=== PATIENT | female | born 1995 ===

== ENCOUNTER 2018-06-01 21:29 | Inpatient (IN) | payer MEDICAID ==
[2018-06-01 22:13] VITALS: BMI 32.8
[2018-06-01] MEDS ORDERED: Lactated Ringer's 1,000 ML IV ONE (22:13)
[2018-06-01] MEDS ORDERED: Lactated Ringer's 1,000 ML IV SCH (22:15)
[2018-06-01] MEDS ORDERED: Oxytocin 30 UNIT 30 UNITS/500 ML BAG IV ONE (22:22)
[2018-06-01] MEDS ORDERED: OXYTOCIN/0.9 % NS 20 UNIT/1,000 ML BAG IV SCH (22:30)
[2018-06-01 22:32] LABS: BASO # 0.1 K/uL (0.0-0.2); BASO % 0.8 % (0.0-2.0); EOS # 0.1 K/uL (0.0-0.7); EOS % 1.1 % (0.0-4.0); HEMOGLOBIN 12.3 g/dL (12.0-16.0); LYMPH # 2.4 K/uL (1.0-4.3); LYMPH % 25.3 % (20.0-40.0); MEAN CELL VOLUME 82.2 fl (81.0-99.0); MEAN CORPUSCULAR HEMOGLOBIN 26.4 pg (27.0-31.0); MEAN CORPUSCULAR HGB CONC 32.2 g/dL (33.0-37.0); MEAN PLATELET VOLUME 8.5 fl (7.2-11.7); MONO # 0.7 K/uL (0.0-0.8); MONO % 7.8 % (0.0-10.0); NEUT # 6.1 K/uL (1.8-7.0); NRBC % 0.1 % (0.0-0.0); RBC 4.64 Mil/uL (3.80-5.20); RED CELL DISTRIBUTION WIDTH 14.4 % (11.5-14.5); WHITE BLOOD COUNT 9.4 K/uL (4.8-10.8)
[2018-06-02 07:14] VITALS: O2SAT 99
--- NOTE | 2018-06-02 19:10 | OBPN ---
Datetime: 06/02/2018 13:44 IP Progress Impression: Normal progression of labor; Reassuring heart rate IP Informed Consent Obtain: Vaginal Delivery IP Progress Plan: Continue present management; Induction; Cervical Ripening FHR - Baseline A Provider: 155 IP Progress Note Comment: Subjective: 22-year-old at 38.4, lying in bed comfortably with no complaints. Objective: Blood pressure: 126/72; HR: 89 FHT:FHR 155 bpm, accelerations present, no decelerations, moderate variability; Cat I CTX: none SVE: 08/30/3 at 10:45am Meds: Cervadil removed at 10:45am, Cytotect 50 mcg Q4 started at 12:15pm Assessment: Intrauterine at 38.4 weeks admitted for induction of labor currently in lat ent phase of labor. Plan: -Continue current management -FHT reassuring, Category I: Baseline ?FHR 155 bpm, accelerations present, no decelerations, moder ate variability -Observe labor progression -Continue Cytotec 50 mcg Q4H -Anticipate vaginal delivery/consider caesarean if necessary Case seen and discussed with Dr Hogan ---Patricia Randolph MD PGY1 [facility] OB Hospitalist note: On ronds I saw this patinet. She was examined after Cervidl removed...Discuss ion with patient about medical condition, IOL, medicatoins, risks/complications, labor, delivey and p ostpartum care...she agreed to starting Cytotec PO q4h. Her questoins answered. MAHNDO Vital Signs Provider: Reviewed NICHD Accel Fetus A IP Provider: [id number] FHR Category Provider Fetus A: Category I NICHD Variability Prov Fetus A: Moderate 6-25bpm Dilatation, Provider: 1 Effacement, Provider: 20 Station, Provider: -2 NICHD Decel Fetus A IP Provider: None
[2018-06-02] MEDS ORDERED: Fentanyl/Bupivacaine HCl 250 ML EPI ONE (20:19)
[2018-06-03] MEDS ORDERED: Oxytocin 30 UNIT 30 UNITS/500 ML BAG IV ONE (07:24)
--- NOTE | 2018-06-03 07:42 | OBPN ---
Datetime: 06/03/2018 07:30 IP Progress Impression Other: Latent phase of labor IP Progress Impression: Normal progression of labor; Reassuring heart rate IP Informed Consent Obtain: Vaginal Delivery IP Progress Plan: Augmentation; Anticipate Vaginal Delivery Pool Provider: Negative Membranes, Provider: Intact Contraction Comments Provider: none FHR - Baseline A Provider: 135 Presentation-Admit: Vertex IP Progress Note Comment: OB Hospitalist on-call. Pt had CTX pain last night. CTX q1-2m acc to shiva se and one dose was held/then given later at 4am ... +FM A: IUP at 38w / Hx demise / latent phase of labor PLAN: Discussoin with pt...will start Pitocin NICHD Accel Fetus A IP Provider: [id number] FHR Category Provider Fetus A: Category I NICHD Variability Prov Fetus A: Moderate 6-25bpm Dilatation, Provider: 3 Effacement, Provider: long Station, Provider: high NICHD Decel Fetus A IP Provider: None Datetime: 06/03/2018 05:37 Vital Signs Provider: Reviewed; Within Normal Limits
[2018-06-03] MEDS ORDERED: Phenylephrine 10 mg/ml Inj ONE (14:55)
--- NOTE | 2018-06-03 17:24 | OBDS ---
DELIVERY PERSONNEL Delivery Doctor: Cheko Olson MD Child Development Consultant: Shelly Conde RN MATERNAL INFORMATION Maternal Complications: None (Annotations: Data stored by [facility] on behalf of user) LABOR SUMMARY EDC: 06/12/2018 00:00 No. Babies in Womb: 1 Attempted: No Labor Anesthesia: Epidural LABOR INFORMATION Reason for Induction: Intrauterine Growth Retardation Cervical Ripening Agents: Cytotec @ Other Ripening Agents: cytotec 50 mcg po Oxytocin: N/A Group B Beta Strep: Negative Steroids Given: None Reason Steroids Not Administered: Not Applicable MEMBRANES Membranes Rupture Method: Artificial Amniotic Fluid Color: Clear Amniotic Fluid Amount: Small Amniotic Fluid Odor: Normal STAGES OF LABOR Stage 3 hrs: 0 Stage 3 min: 4 VAGINAL DELIVERY Episiotomy: None Laceration Extension: N/A Laceration Type: None Initial Vag Sponge Count: 5 Final Vag Sponge Count: 5 Initial Vag Sharps Count: 1 Final Vag Sharps Count: 1 Sponge Count Correct: Yes; Vaginal Sweep Performed Sharps Count Correct: Yes BABY A INFORMATION Infant Delivery Date/Time: 06/03/2018 15:36 Method of Delivery: Vaginal Born in Route : No : N/A Forceps: N/A Vacuum Extraction: N/A Shoulder Dystocia : No SHOULDER DYSTOCIA BABY A Delivery Date/Time: 06/03/2018 15:36 PRESENTATION/POSITION BABY A Presentation: Cephalic Cephalic Presentation: Vertex Breech Presentation: N/A PLACENTA INFORMATION BABY A Placenta Delivery Time : 06/03/2018 15:40 Placenta Method of Delivery: Spontaneous Placenta Status: Delivered SCORES BABY A Heart Rate 1 min: >100 bpm Resp Effort 1 min: Good Cry Reflex Irritability 1 min: Cough or Sneeze or Pulls Away Muscle Tone 1 min: Active Motion Color 1 min: Body [place], Extremities Blue Resuscitation Effort 1 min: Tactile Stimulation SCORE 1 MIN: 9 Heart Rate 5 min: >100 bpm Resp Effort 5 min: Good Cry Reflex Irritability 5 min: Cough or Sneeze or Pulls Away Muscle Tone 5 min: Active Motion Color 5 min: Body [place], Extremities Blue Resuscitation Effort 5 min: N/A SCORE 5 MIN: 9 INFORMATION BABY A Gestational Age at Delivery: 38.5 Gestational Status: Term Infant Outcome : Liveborn Infant Condition : Stable Sex: Female IDENTIFICATION/MEDS BABY A ID Band Number: [id number] WEIGHT/LENGTH BABY A Birthweight (gms): 2420 Infant Weight (lb): 5 Infant Weight (oz): 5 CORD INFORMATION BABY A No. Cord Vessels: 3 Nuchal Cord : Around Neck x1, Loose Cord Blood Taken: N/A Suction: Mouth; Nose
[2018-06-03] MEDS ORDERED: Benzocaine/Menthol SPRAY TOP PRN (17:26)
[2018-06-04] MEDS ORDERED: OXYTOCIN/0.9 % NS 20 UNIT/1,000 ML BAG IV SCH (05:48)
[2018-06-04] MEDS ORDERED: Benzocaine/Menthol SPRAY TOP PRN (05:48)
[2018-06-04 19:17] LABS: MEAN CORPUSCULAR HEMOGLOBIN 26.8 pg (27.0-31.0); MEAN CORPUSCULAR HGB CONC 32.3 g/dL (33.0-37.0); RBC 4.1 Mil/uL (3.80-5.20); RED CELL DISTRIBUTION WIDTH 14.6 % (11.5-14.5); WHITE BLOOD COUNT 9.1 K/uL (4.8-10.8)
--- NOTE | 2018-06-05 11:17 | OBPPN ---
Datetime: 06/05/2018 05:22 PP Pain Prov: Within normal limits PP Nausea Prov: Denies PP Flatus Prov: Yes PP BM Prov: No PP Breasts Prov: Not Done PP Heart Prov: Normal PP Lungs Prov: Normal PP Abdomen/Uterus Prov: Normal PP Lochia Prov: Normal PP Vulva/Perineum Prov: Normal PP CVA Tenderness Prov: Not Done PP Extremities Prov: Normal PP C/S Incision Prov: Not Applicable PP Progress Prov: Normal PP Impression Prov: Normal progression PP Plan Prov: Continue present management; Discharge PP Progress Note Prov: S: Patient seen this morning at bedside, she is now s/p on 06/03, today is PPD 2. Pt reports no complaints today. Reports minimal abdominal pain but states is bet ter with pain medication. She is tolerating PO intake w/o N/V, ambulating to bathroom without any dif ficulties, lochia is less than menses in volume, Breast feeding w/o difficulty and supplementing with formula. Patient reports flatus but no BM as of yet. O: VS WNL PE: Patient is resting comfortably in her hospital bed. In no acute distress. HEENT: Mucous membrane moist. RESP: Clear air entry bilaterally. CV: RRR, no murmurs, gallops or rubs. ABD: soft, non-tender, uterus firm below umbilicus LE: No edema, Mildred's negative. A/P: 22 y/o now s/p on 06/03/18, today is PPD 2- normal post- progression. Staci ent is stable to be D/C home. - Encourage ambulation - Encourage to continue - PNV 1 tab PO daily - Ibuprofen 600mg 1 tab Q6h prn for mild-mod pain - D/C home today, 06/05/18 Chani Nobles MD PGY1 OB Attneding note Pt seen on rounds...agree with note MARILEE CAT PP Procedures: None Vital Signs Provider PP: Reviewed; Within Normal Limits
--- NOTE | 2018-06-05 11:20 | OBDCSUM ---
Datetime: 06/05/2018 05:23 Discharged to, Provider: Home Follow up at, Provider: [facility] Disch Instr Activity: Normal activity; May Shower Disch Instr Diet: Regular Discharge Instructions, Provider: Routine instructions given Discharge Diagnosis, Provider: Term Delivered Discharge Time: 06/05/2018 10:00 Follow up in weeks, Provider: 6 weeks Disch Referrals: None Contraception discussed, Prov: Yes Disch Activity Restrictions: No exercising; No lifting; No sexual activity; Nothing in vagina - Inte rcourse, tampons, douche Discharge Comment, Provider: EGA: 38.3 weeks Diagnosis: 22 y/o , s/p on 06/03/18 @ 15:36. She delivered a baby female, Wt 2420g, AP GAR 04/19 Summary: Patient is PPD2 with normal progression. No complications during post- period. Loch ia less than menses. Pt was able to pass gas but has not had BM, She is tolerating regular diet, Fund us firm below umbilicus, able to ambulate w/o any difficulties, voiding well, denies fever, chills, H A, SOB, N/V, calf pain. CBC post-: 11.0/34.0 Discharge Instructions: 1. Continue and increase 2. PNV 1 tab PO daily 3. Ibuprofen 600mg 1 tab PO Q6h prn for mild-mod pain 4. Pt is not interested in using contraception at this time. 5. Instructions given to patient: If excessive bleeding, return of pain or increasing pain and/or fever without relief from medication, go to ED 6. PT was urged if feeling sad, mood swing, depression, neglect of baby, suicidal thoughts, homici olga thought should go to ED or call 911 for help 7. Pt should go to her Primary care doctor if she has difficulty with 8. F/U post- visit in 6 weeks with [facility]. Chani Nobles MD PGY1 OB Attneding note Pt seen on rounds...agree with note MAHNDO Contraception after Delivery: Not Planning to Use
[2018-06-05 18:38] VITALS: BP 147/83; PULSE 89; RESP 18; TEMP 97.7
== END 2018-06-05 14:25 | disposition home or self-care (01) | DRG 373 ==
LOC: H.L&D 21:29 → EDSTATUS 21:40 → H.OB/GYN 06-03 20:14
PROVIDERS: ADMIT Obstetrics & Gynecology; ATTEND Obstetrics & Gynecology
PROC: 10E0XZZ Delivery of Products of Conception, External Approach (ICD-10-PCS; principal; 2018-06-03)
PROC: 4A1HXCZ Monitoring of Products of Conception, Cardiac Rate, External Approach (ICD-10-PCS; 2018-06-03)
DX: O69.81X0 Labor and delivery complicated by cord around neck, without compression, not applicable or unspecified (principal); O36.5930 Maternal care for other known or suspected poor fetal growth, third trimester, not applicable or unspecified; Z3A.38 38 weeks gestation of pregnancy; Z37.0 Single live birth